=== PATIENT | female | born 1995 | race Caucasian/White ===

== ENCOUNTER 2017-07-28 00:33 | Emergency (ER) | payer BC ==
[~2017-07-28] VITALS: Ht 167.6 cm; Wt 65.8 kg
[2017-07-28 00:38] VITALS: Ht 167.6 cm; Wt 65.8 kg
[2017-07-28 05:04] VITALS: BP 105/64
== END 2017-07-28 05:04 | disposition home or self-care (01) ==
LOC: ED 00:33
DX: J98.01 Acute bronchospasm (principal)
CPT/HCPCS: J1100